=== PATIENT | male | born 1995 | race African-American/Black ===

== ENCOUNTER 2017-07-02 11:33 | Emergency (ER) | payer SELFPAY ==
[2017-07-02 11:39] VITALS: BP_SYST 12; BP_SYST 123; BP_DIAS 79; PULSE 66; RESP 14; TEMP 98.3; O2SAT 100
[2017-07-02] MEDS ORDERED: NYST15T TOPICAL (11:53)
--- NOTE | 2017-07-02 11:54 | PD ---
HPI Chief Complaint: Medical Clearance Time Seen by Provider: 11:44 Travel History International Travel<30 days: No Contact w/Intl Traveler<30days: No Traveled to known affect area: No History of Present Illness HPI Patient is a 22-year-old male presents emergency department for evaluation of dry feet, for years. Patient states occasionally his feet hurt. He states he needs a work note to go back to work. He states he took several days off last week because his feet hurt him and he needed to go to a as his aunt . Denies any fever denies any chest pain shortness breath abdominal pain nausea vomiting history of HIV or diabetes. States his symptoms are mild, both feet, context as above, associated signs symptoms as above PFSH Past Medical History Medical History: Denies Significant Hx Past Surgical History Surgical History: No Previous Surgery Social History Alcohol Use: No Tobacco Use: No Substance Use: No Allergies-Medications (Allergen,Severity, Reaction): Coded Allergies: No Known Allergies (Unverified , 07/02/17) Reported Meds & Prescriptions Reported Meds & Active Scripts Active Nystatin Topical (Nystatin) 100,000 unit/gm Cream 1 Applic TOPICAL Q6HR Review of Systems Except as stated in HPI: all other systems reviewed are Neg Physical Exam Narrative GENERAL: Well-nourished, well-developed patient. SKIN: Focused skin assessment warm/dry. Some dry scaly skin on bilateral dorsum as well as plantar surfaces of the feet, also involving the interdigital space, no discharge no erythema no fluid collection seen. HEAD: Normocephalic. EYES: No scleral icterus. No injection or drainage. NECK: Supple, trachea midline. No JVD or lymphadenopathy. CARDIOVASCULAR: Regular rate and rhythm without murmurs, gallops, or rubs. RESPIRATORY: Breath sounds equal bilaterally. No accessory muscle use. GASTROINTESTINAL: Abdomen soft, non-tender, nondistended. MUSCULOSKELETAL: No cyanosis, or edema. 2+ bilateral equal pulses felt in all 4 extremities, no signs of ischemia. Pulses motor and sensory intact distally in all 4 extremities, BACK: Nontender without obvious deformity. No CVA tenderness. Data Data Last Documented VS Vital Signs Date Time Temp Pulse Resp B/P (MAP) Pulse Ox O2 Delivery O2 Flow Rate FiO2 07/02/17 11:39 98.3 66 14 123/79 (94) 100 Orders Orders Ed Discharge Order (4/14/18 11:55) [facility] Medical Decision Making Medical Screen Exam Complete: Yes Emergency Medical Condition: Yes Differential Diagnosis Chronic skin dryness, tinea pedis, cellulitis unlikely, Narrative Course Patient room to the emergency department, empiric nystatin, discussed need follow-up with a donor services manager or primary care physician. No indication further workup at this time peer Diagnosis Primary Impression: Dry skin Departure Forms: Tests/Procedures, Work Release Enter return to work date: Jul 02, 2017 Special Instructions: Patient can return to work immediately. Was seen in ER on 07/02/2017 Med/Other Pt SpecificInfo: Prescription(s) given Scripts Nystatin Topical (Nystatin Topical) 100,000 unit/gm Cream 1 APPLIC TOPICAL Q6HR for Infection, #15 GM 0 Refills Prov: Marvin Trinh MD 07/02/17 Disposition: 01 DISCHARGE HOME Condition: Stable Marvin Trinh MD Jul 02, 2017 11:54
== END 2017-07-02 12:08 | disposition home or self-care (01) ==
LOC: NEPD 11:33
DX: L85.3 Xerosis cutis (principal)
CPT/HCPCS: 99283